=== PATIENT | female | born 1985 | race Caucasian/White ===

== ENCOUNTER → 2016-12-03 | Outpatient (CLI) | payer OTHER ==
--- NOTE | 2016-12-03 12:34 | CT ---
EXAMINATION TYPE: CT lumbar spine wo con DATE OF EXAM: 12/03/2016 12:14 PM COMPARISON: NONE HISTORY: Lt lower back pain, nerve pain when laying down since surgery 09/14/16 CT DLP: 392.2 mGycm Automated exposure control for dose reduction was used. FINDINGS: There is a disc spacer and pedicle screws present at L5-S1. Disc spacer and pedicle screws at L4-L5 a re also present. No spinal canal stenosis present. Spondylolisthesis of L5 is likely present. The rig ht pedicle screw at L4 mid transverses the medial aspect of the spinal canal Unenhanced CT of the lumbar spine was performed. Bone and soft tissue window settings are submitted as well as coronal and sagittal reconstructions. L1-L2: Normal disc space height. No disc herniation protrusion or central stenosis. No facet joint arthropathy. No evidence for foraminal encroachment. L2-L3: Normal disc space height. No disc herniation protrusion or central stenosis. No facet joint arthropathy. No evidence for foraminal encroachment. L3-L4: Normal disc space height. Stable disc bulging with no central stenosis. No facet joint arthro susana. No evidence for foraminal encroachment. L4-L5: Postsurgical change with metallic artifact obscures the spinal canal.. L5-S1: Postsurgical change with metallic artifact obscures the spinal canal.. IMPRESSION: 1. Postsurgical changes L4-S1. The left L4 pedicular screw again appears to impinge upon the spinal canal. 2. Stable disc bulging L3-L4. 3. Limited assessment of L4-S1 due to artifact from the metallic hardware. #4 punctate left renal andrew culi with no evidence of obstruction.
== END | disposition home or self-care (01) ==
LOC: RADCTMAIN 11:57
PROVIDERS: ATTEND Neurological Surgery
DX: M51.26 Other intervertebral disc displacement, lumbar region (principal); Z98.1 Arthrodesis status
CPT/HCPCS: 72131

== ENCOUNTER → 2017-01-27 | Outpatient (CLI) | payer OTHER ==
--- NOTE | 2017-01-27 16:00 | XR ---
EXAMINATION TYPE: XR lumbar spine 2 or 3V DATE OF EXAM: 01/27/2017 3:50 PM COMPARISON: 10/05/2016 HISTORY: Lumbosacral spondylolisthesis low back pain TECHNIQUE: 3 view lumbar spine FINDINGS: Postsurgical changes are present with pedicle screws and fixation rods L4-S1. Disc spacer p resent L4-5 L5-S1. Vertebral body alignment appears normal. Remaining disc heights are preserved. Mil d scoliosis is present. IMPRESSION: 1. Postsurgical changes. No acute osseous abnormality is evident. 2. Examination appears stable
== END | disposition home or self-care (01) ==
LOC: RADXRMAIN 15:38
PROVIDERS: ATTEND Neurological Surgery
DX: M43.10 Spondylolisthesis, site unspecified (principal)
CPT/HCPCS: 72100

== ENCOUNTER → 2017-05-11 | Outpatient (CLI) | payer OTHER ==
--- NOTE | 2017-05-11 07:10 | XR ---
EXAMINATION TYPE: XR lumbar spine 2 or 3V DATE OF EXAM ORDERED: 05/11/2017 HISTORY: M43.10 lumbosacral spondylolisthesis. COMPARISON: Previous study dated 01/27/2017. FINDINGS: There has been an interpedicular fusion with spacer placement at L4, L5 and S1. Alignment remains normal. There has been no apparent interval change. IMPRESSION: STABLE POSTSURGICAL CHANGE.
== END | disposition home or self-care (01) ==
LOC: RADXRMAIN 06:49
PROVIDERS: ATTEND Neurological Surgery
DX: M43.16 Spondylolisthesis, lumbar region (principal); Z98.890 Other specified postprocedural states
CPT/HCPCS: 72100

== ENCOUNTER → 2017-05-17 | Outpatient (CLI) | payer SELFPAY ==
--- NOTE | 2017-05-17 13:04 | XR ---
EXAMINATION TYPE: XR lumbar spine 2 or 3V DATE OF EXAM: 05/17/2017 CLINICAL HISTORY: M43.10 Spondylolisthesis, site unspecified TECHNIQUE: Three views of the lumbar spine are submitted. COMPARISON: 05/11/2017 FINDINGS: FINDINGS: There has been an interpedicular fusion with spacer placement at L4 , L5 and S1. Alignment remains stable. There is anterolisthesis of L5 on S1 of approximately 1.1 cm. IMPRESSION: Stable presurgical alignment and evaluation.
== END | disposition home or self-care (01) ==
LOC: RADXRMAIN 12:36
PROVIDERS: ATTEND Neurological Surgery
DX: M43.10 Spondylolisthesis, site unspecified (principal)

== ENCOUNTER → 2017-05-21 | Outpatient (CLI) | payer OTHER ==
--- NOTE | 2017-05-21 11:14 | CT ---
EXAMINATION TYPE: CT lumbar spine wo con DATE OF EXAM: 05/21/2017 COMPARISON: 12/03/2016 HISTORY: Lower back pain, pre hardware removal CT DLP: 327.9 mGycm CONTRAST: None TECHNIQUE: CT of the lumbar spine is performed on a spiral scan at 3 mm thick sections. Reconstructed images are performed in the coronal and sagittal planes. FINDINGS: T12-L1: No focal disc herniation or significant disc bulge is evident. No spinal canal stenosis or neural foraminal stenosis is present. L1-L2: No focal disc herniation or significant disc bulge is evident. No spinal canal stenosis or n eural foraminal stenosis is present L2-L3: No focal disc herniation or significant disc bulge is evident. No spinal canal stenosis or n eural foraminal stenosis is present. Some ligamentum flavum laxity may be present. L3-L4: Mild symmetrical disc bulge is present with anterior thecal sac flattening. No AP spinal canal stenosis or neural foraminal stenosis present. Mild ligamentum flavum laxity is present. L4-L5: Beam hardening artifact limits this examination. The left L4 pedicle screw is somewhat medial and superiorly displaced. Correlate with left L4 radicular symptoms. Disc spacers present L4-5. There is a grade 1 spondylolisthesis of L4 anterior and L5. L5-S1: There is a grade 1 spondylolisthesis of L5 anterior on S1. No AP spinal canal stenosis is pres ent. Neural foramen are patent. Vertebral alignment appears normal. Couple of punctate left renal stones remain present. Some sacroiliac joint degenerative changes present. IMPRESSION: 1. Mild disc bulge L3-4, stable from November 2016. 2. Stable appearance of the left L4 pedicle screw. 3. Grade 1 spondylolisthesis of L5 anteriorly on S1, stable.
== END | disposition home or self-care (01) ==
LOC: RADCTMAIN 07:16
PROVIDERS: ATTEND Neurological Surgery
DX: M43.17 Spondylolisthesis, lumbosacral region (principal); M51.26 Other intervertebral disc displacement, lumbar region
CPT/HCPCS: 72131

== ENCOUNTER → 2017-06-10 | Outpatient (CLI) | payer OTHER ==
[2017-06-10 13:00] LABS: Basophils % (A) 1 %; CH 28.9; CHCM 32.4; Eosinophils # (A) 0.1 k/uL (0-0.7); Eosinophils % (A) 1 %; HCT 33.8 % (34.0-46.0); HDW 2.02; HGB 11.1 gm/dL (11.4-16.0); Luc # (Auto) 0.14; Luc % (Auto) 2; Lymphocytes % (A) 29 %; MCH 29.5 pg (25.0-35.0); MCHC 32.8 g/dL (31.0-37.0); MCV 89.8 fL (80.0-100.0); Mean Platelet Volume 8.5; Monocytes # (A) 0.4 k/uL (0-1.0); Monocytes % (A) 5 %; Neutrophils # (A) 4.4 k/uL (1.3-7.7); Neutrophils % (A) 63 %; RBC 3.76 m/uL (3.80-5.40); RDW 12.2 % (11.5-15.5); WBC (Perox) 7.46
[2017-06-10 13:06] LABS: ALT 29 U/L (9-52); AST 17 U/L (14-36); Alkaline Phosphatase 66 U/L (38-126); Anion Gap 10 mmol/L; Blood Urea Nitrogen 16 mg/dL (7-17); Calcium 9.4 mg/dL (8.4-10.2); Carbon Dioxide 23 mmol/L (22-30); Chloride 106 mmol/L (98-107); Glucose 73 mg/dL (74-99); Non-African American GFR(MDRD) >60 (>60 ml/min/1.73 sqM); Potassium 4.5 mmol/L (3.5-5.1); Prothrombin Time 9.9 sec (9.0-12.0); Sodium 139 mmol/L (137-145); Total Bilirubin 0.4 mg/dL (0.2-1.3); Total Protein 6.7 g/dL (6.3-8.2)
[2017-06-10 13:18] LABS: Appearance,Urine Clear (Clear); Bilirubin,Urine Negative (Negative); Glucose,Urine (UA) Negative (Negative); Ketones,Urine Negative (Negative); Leukocyte Esterase,Urine Negative (Negative); Nitrite,Urine Negative (Negative); PH, Urine 6.5 (5.0-8.0); Protein,Urine Negative (Negative); Specific Gravity,Urine 1.002 (1.001-1.035); UA Billing (MACRO vs. MICRO) CHEM; Urobilinogen,Urine <2.0 mg/dL (<2.0)
== END | disposition home or self-care (01) ==
LOC: LABWHC1 12:09
PROVIDERS: ATTEND Neurological Surgery
DX: M46.1 Sacroiliitis, not elsewhere classified (principal); M51.36 Other intervertebral disc degeneration, lumbar region
CPT/HCPCS: 36415; 80053; 81003; 85025; 85610; 85730

== ENCOUNTER 2018-04-20 14:30 | Day surgery (SDC) | payer OTHER ==
[2018-04-20] MEDS ORDERED: LACTATED RINGERS 1,000 ML IV ONE (14:58)
[2018-04-20] MEDS ORDERED: ONDANSETRON 4 MG/2 ML VIAL IVP ONE (14:59)
[2018-04-20] MEDS ORDERED: DEXAMETHASONE SOD PHOSPHATE 10 MG/ML 1 ML VIAL IV ONE (15:00)
[2018-04-20] MEDS ORDERED: SCOPOLAMINE 1.5MG/72HR PATCH TRANSDERM ONE (15:00)
[2018-04-20] MEDS ORDERED: fentaNYL (PF) 50 MCG/ML 2 ML AMP ONE (16:33)
[2018-04-20] MEDS ORDERED: HYDROmorphone (PF) 1 MG/ML ONE (16:33)
[2018-04-20] MEDS ORDERED: LIDOCAINE 1% INJ 10MG/ML (20 ML MDV) ONE (16:33)
[2018-04-20] MEDS ORDERED: KETOROLAC 30 MG/ML 1 ML VIAL ONE (16:33)
[2018-04-20] MEDS ORDERED: PROPOFOL 10 MG/ML 20 ML VIAL IV ONE (16:33)
[2018-04-20] MEDS ORDERED: MIDAZOLAM 2 MG/2 ML VIAL ONE (16:33)
[2018-04-20] MEDS ORDERED: LIDOCAINE 1%-EPI 1:100,000 20 ML VIAL SQ ONE (16:47)
--- NOTE | 2018-04-20 17:07 | P.OP ---
Date of Procedure: 04/20/18 Preoperative Diagnosis: Missed Postoperative Diagnosis: Same Procedure(s) Performed: Suction dilation and curettage Anesthesia: MAC Surgeon: Agustina Weaver Estimated Blood Loss (ml): 50 Urine output (ml): 100 Pathology: other (Products of conception) Condition: stable Disposition: PACU Indications for Procedure: Missed at 11 weeks by LMP, 7 weeks by ultrasound. Vaginal bleeding. Operative Findings: 8-10 week size uterus, cervix dilated 1 cm, active vaginal bleeding Description of Procedure: After the patient and her were met in the preoperative holding area and all questions were answered, she was taken to the operating room where anesthetic was administered without incident. She was in positioned, prepped and draped in the dorsal lithotomy position. Bladder was drained for approximately 100 mL of clear urine. Exam under anesthetic was undertaken and the above findings were noted. Single-sided speculum was placed in the vagina and the cervix was grasped anteriorly with a single-tooth tenaculum. Paracervical block was placed with lidocaine plus epinephrine. The uterus was sounded to 10.5 cm. The cervix was sequentially dilated with Hegar dilators to allow for passage of the 10-[place] curved suction curette. This was introduced and a large amount of products of conception were removed. The sharp banjo curette was then introduced and the uterine cavity was sequentially curettaged with some additional tissue obtained. Final pass was undertaken with the suction curet with minimal tissue noted. The curet was then removed and the cervix was observed. There was a slow on use of bleeding that was observed. Speculum was removed and bimanual examination was performed. The uterus felt firm and approximately 6-8 weeks size. Speculum was reintroduced and the cervix was further observed. No active bleeding was noted. Therefore the procedure was terminated. Instruments were removed and the patient was awoken from anesthetic without incident. She was transported recovery area in stable condition. All counts reported to me as correct by the operating room staff.
[2018-04-20] MEDS ORDERED: METHYLERGONOVINE 0.2 MG/ML 1 ML AMP IM ONE (17:08)
[2018-04-20 17:12] VITALS: TEMP 98.3
[2018-04-20 17:18] VITALS: RESP 18
[2018-04-20 18:18] VITALS: BP 104/58; PULSE 72
== END 2018-04-20 18:47 | disposition home or self-care (01) ==
LOC: OR 14:30
PROVIDERS: ATTEND Obstetrics & Gynecology
DX: O02.1 Missed abortion (principal); Z98.1 Arthrodesis status; Z79.899 Other long term (current) drug therapy; Z88.0 Allergy status to penicillin; Z88.8 Allergy status to other drugs, medicaments and biological substances; Z91.048 Other nonmedicinal substance allergy status; Z88.2 Allergy status to sulfonamides
CPT/HCPCS: 88305; 59820; J2250; J1100; J2210; J2405; J2001; J3010; J1885; J1170; J2704

== ENCOUNTER → 2018-04-20 | Outpatient (CLI) | payer OTHER ==
--- NOTE | 2018-04-20 09:43 | US ---
EXAMINATION TYPE: Transabdominal DATE OF EXAM: 02/22/18 COMPARISON: NONE CLINICAL HISTORY: Bleeding O46.91. Heavy bleeding starting this morning EXAM PERFORMED: Transvaginal (TV) and Transabdominal (TA) EXAM MEASUREMENTS: GESTATIONAL AGE / DATING Physician Established: (11 weeks/0 days) EDC: 11/09/2018 Dates by LMP: (11 weeks/0 days) EDC: 11/09/2018 Dates by First Scan: No previous this is first scan Dates by Current Scan for: (7 weeks/1 days)- demise MATERNAL ANATOMY Uterus: 8.7 x 5.5 x 5.7 cm Right Ovary: 3.2 x 1.9 x 2.2 cm Left Ovary: 2.7 x 1.6 x 2.0 cm Post CDS / Adnexa: Small amount of free fluid visualized in the posterior cul de sac Presence of free fluid: Yes Presence of corpus luteal cyst: Yes, right ovary measuring 1.7 x 1.2 x 1.6 cm Presence of subchorionic bleed: No GESTATION / SURVEY CRL: 1.1 cm (7 weeks/1 days) IUP: Demise Date of LMP: Unsure Beta HcG (if available): Not available at this time demise. There is discrepancy between the dating by last menstrual period and crown-rump length dating. The gestational sac is in the lower uterine segment. No cardiac activity is evident within the pole. IMPRESSION: 1. Findings compatible with intrauterine demise.
[2018-04-20 09:53] LABS: HCT 36.3 % (34.0-46.0); HGB 11.8 gm/dL (11.4-16.0); MCH 29.4 pg (25.0-35.0); MCHC 32.6 g/dL (31.0-37.0); MCV 90.2 fL (80.0-100.0); Mean Platelet Volume 7.7; Platelet Count 270 k/uL (150-450); RBC 4.03 m/uL (3.80-5.40); RDW 12.6 % (11.5-15.5); WBC 8.4 k/uL (3.8-10.6)
== END | disposition home or self-care (01) ==
LOC: RADUSWWP 08:58
PROVIDERS: ATTEND Obstetrics & Gynecology
DX: O20.0 Threatened abortion (principal); Z3A.01 Less than 8 weeks gestation of pregnancy
CPT/HCPCS: 36415; 76801; 76817; 84702; 85027; 86850; 86900; 86901

== ENCOUNTER → 2018-05-20 | Outpatient (CLI) | payer OTHER | END | disposition home or self-care (01) | LOC: LABWHC1 14:59 | PROVIDERS: ATTEND Obstetrics & Gynecology | DX: O02.1 Missed abortion (principal) | CPT/HCPCS: 36415; 84702 ==

== ENCOUNTER → 2018-06-03 | Outpatient (CLI) | payer OTHER ==
--- NOTE | 2018-06-03 14:47 | XR ---
EXAMINATION TYPE: XR lumbar spine 2 or 3V , 3 VIEWS DATE OF EXAM ORDERED: 06/03/2018 HISTORY: Z98.1 HX Lumbar fusion. COMPARISON: Previous study dated 05/17/2017. FINDINGS: Limited hardware at L4, L5 and S1 has been removed. Spacing material persists. There is mild dextroscoliosis. There is a bilateral lysis at L5 and a grade 1 bordering on grade 2 sp ondylolisthesis of L5 on S1. Alignment is otherwise normal.. Vertebral body height is maintained. IMPRESSION: 1. POSTSURGICAL CHANGE. 2. BILATERAL LYSIS, L5 WITH A GRADE 1 BORDERING ON GRADE 2 SPONDYLOLISTHESIS OF L5 ON S1, UNCHANGED F ROM PREVIOUS.
== END | disposition home or self-care (01) ==
LOC: RADXRMAIN 14:00
PROVIDERS: ATTEND Neurological Surgery
DX: M43.26 Fusion of spine, lumbar region (principal); Z98.1 Arthrodesis status; M43.16 Spondylolisthesis, lumbar region
CPT/HCPCS: 72100

== ENCOUNTER → 2018-12-23 | Outpatient (CLI) | payer OTHER ==
--- NOTE | 2018-12-23 12:49 | XR ---
EXAMINATION TYPE: XR chest 2V DATE OF EXAM: 12/23/2018 COMPARISON: NONE HISTORY: Cough and congestion for one week. TECHNIQUE: Frontal and lateral views of the chest are obtained. FINDINGS: There is suspicious right upper lobe opacity seen better on frontal view. Left lung is cl ear. No pleural effusion or pneumothorax is evident bilaterally. The cardiac silhouette size is withi n normal limits. The osseous structures are intact. IMPRESSION: Suspect acute right upper lobe infiltrate.
== END ==
LOC: RADXRMAIN 12:07
PROVIDERS: ATTEND Family Medicine
DX: R05 Cough (principal)
CPT/HCPCS: 71046

== ENCOUNTER 2019-10-27 15:17 | Inpatient (IN) | payer OTHER ==
[2019-10-30] MEDS ORDERED: ROPIVACAINE 5MG/ML 20ML VIAL ONE (02:31)
[2019-10-30] MEDS ORDERED: fentaNYL (PF) 50 MCG/ML 5 ML AMP ONE (02:31)
[2019-10-30] MEDS ORDERED: SODIUM CHLORIDE 0.9% 100 ML BAG ONE (02:31)
[2019-10-30] MEDS ORDERED: DINOPROSTONE 10 MG INSERT.ER VAGINAL ONE (14:06)
[2019-10-30] MEDS ORDERED: LACTATED RINGERS 1,000 ML IV SCH (14:15)
--- NOTE | 2019-10-30 16:03 | P.HPOB ---
History of Present Illness H&P Date: 10/30/19 Chief Complaint: Postdates This is a 34-year-old 2 para 0010 woman with an estimated due date of 10/27/2019 based on LMP consistent with first trimester ultrasound. She is admitted at 40-3/7 weeks gestation for cervical ripening. During routine testing for postdates states she underwent an amniotic fluid index. She had less than 2 cm of identifiable amniotic fluid therefore the was recommended for induction. Her has been otherwise uncomplicated. She does have a history is fundal lithiasis with effusion of bowel for through S1 and has had intermittent back and pelvic pain during the . According to her orthopedic surgeon there is no contraindication to labor and vaginal delivery. Laboratory data: Blood type O+, antibody screen negative, rubella non-immune, VDRL nonreactive, hepatitis B surface antigen negative, HIV negative, gonorrhea and clinic cultures negative, glucose tolerance testing within normal limits, group B strep negative. Obstetric history: 2018 missed AB with suction D&C at 7 weeks. Review of Systems Constitutional: Reports fatigue, Denies chills, Denies fever Cardiovascular: Denies chest pain, Denies shortness of breath Respiratory: Denies cough Gastrointestinal: Denies abdominal pain, Denies nausea, Denies vomiting Genitourinary: Denies abnormal vaginal bleeding Musculoskeletal: Reports low back pain Integumentary: Denies rash Neurological: Denies headaches Past Medical History Past Medical History: No Reported History Additional Past Medical History / Comment(s): Spondylolithiasis History of Any Multi-Drug Resistant Organisms: None Reported Additional Past Surgical History / Comment(s): HX JUN 2017 HARWARE REMOVED L5 TO S1,OCET 2016 L4-S1 FUSION Past Anesthesia/Blood Transfusion Reactions: Motion Sickness, Postoperative Nausea & Vomiting (PONV) Past Psychological History: No Psychological Hx Reported Smoking Status: Never smoker Past Drug Use History: None Reported Medications and Allergies Home Medications Medication Instructions Recorded Confirmed Type Pnv,Calcium 72/Iron/Folic Acid 1 tab PO DAILY 04/20/18 04/20/18 History [ Plus Tablet] Sertraline [Zoloft] 1 tab PO DAILY 04/20/18 04/20/18 History Allergies Allergy/AdvReac Type Severity Reaction Status Date / Time prochlorperazine Allergy Severe Swelling Verified 04/20/18 14:41 [From Compazine] oseltamivir [From Tamiflu] Allergy Nausea & Verified 04/20/18 14:47 Vomiting Penicillins Allergy Rash/Hives Verified 04/20/18 14:45 adhesive tape AdvReac Rash/Hives Verified 04/20/18 14:41 Sulfa (Sulfonamide AdvReac Unknown Verified 04/20/18 14:47 Antibiotics) Exam Per office examination: This is a pleasant, visibly gravid female in no obvious distress. HEENT exam is unremarkable. Her breathing is unlabored and her heart is a regular rate and rhythm. The abdomen is gravid with a fundal height consistent with 40 week gestation. Estimated weight approximately 7-1/2-8 pounds. She has no right upper quadrant pain or uterine tenderness. On pelvic examination the cervix is 1-1/2 cm dilated, 50% effaced and the vertex is in the -3 station. She has trace lower extremity edema. HERB is 2.2 cm. By bedside ultrasound and infant is in the vertex presentation. Assessment and Plan (1) Advanced maternal age (AMA) in Status: Acute Code(s): EUX9085 - SNOMED Code(s): 426049600 (2) Oligohydramnios Narrative/Plan: HERB of approximately 2 cm postdates. Delivery is indicated. Cervical exam is unfavorable therefore she will be admitted for Cervidil placement followed by Pitocin induction of labor per protocol. This is assuming she has a reassuring NST upon admission. Risks benefits and alternatives to plans have been reviewed with the patient and her in the office setting and the consent to the treatment plan. Status: Acute Code(s): O41.00X0 - OLIGOHYDRAMNIOS, UNSP TRIMESTER, NOT APPLICABLE OR UNSP SNOMED Code(s): 58876158 (3) Post-dates Status: Acute Code(s): O48.0 - POST-TERM SNOMED Code(s): 00998265 (4) Spondylolisthesis Narrative/Plan: No contraindication to labor and vaginal delivery according to patient's orthopedic surgeon. She does have fusion of L4 through S1. Status: Acute Code(s): M43.10 - SPONDYLOLISTHESIS, SITE UNSPECIFIED SNOMED Code(s): 899625079 (5) Rubella non-immune status, antepartum Status: Acute Code(s): O99.89 - OTH DISEASES AND CONDITIONS COMPL PREG/CHLDBRTH; Z28.3 - UNDERIMMUNIZATION STATUS SNOMED Code(s): 844268904 Plan: 34-year-old 2 para 0010 woman admitted at 40-3/7 weeks gestation with postdates oligohydramnios and unfavorable cervix. Indication for delivery is oligohydramnios. She will receive Cervidil cervical ripening followed by Pitocin induction of labor as outlined above.
[2019-10-30 17:51] LABS: Basophils % (A) 0 %; Eosinophils # (A) 0.1 k/uL (0-0.7); Eosinophils % (A) 1 %; HCT 32.8 % (34.0-46.0); HGB 10.9 gm/dL (11.4-16.0); Lymphocytes % (A) 19 %; MCH 28.3 pg (25.0-35.0); MCHC 33.3 g/dL (31.0-37.0); MCV 85.1 fL (80.0-100.0); Monocytes # (A) 0.4 k/uL (0-1.0); Monocytes % (A) 4 %; Neutrophils # (A) 7.9 k/uL (1.3-7.7); Neutrophils % (A) 75 %; Platelet Count 259 k/uL (150-450); RBC 3.86 m/uL (3.80-5.40); RDW 13.5 % (11.5-15.5); WBC 10.5 k/uL (3.8-10.6)
[2019-10-30] MEDS: BUTORPHANOL 1 MG/ML 1 ML VIAL IV PRN (22:45)
[2019-10-31] MEDS ORDERED: TERBUTALINE 1 MG/ML VIAL SQ PRN (00:21)
[2019-10-31] MEDS ORDERED: METHYLERGONOVINE 0.2 MG/ML 1 ML AMP IM PRN (00:21)
[2019-10-31] MEDS ORDERED: OXYTOCIN 10 UNIT/ML 1 ML VIAL IM PRN (00:21)
[2019-10-31] MEDS ORDERED: LIDOCAINE 0.5% (PF) 5 MG/ML (50 ML SDV) SQ PRN (00:21)
[2019-10-31] MEDS ORDERED: CARBOPROST TROMETHAMINE 250 MCG/ML 1 ML AMP IM PRN (00:21)
[2019-10-31] MEDS ORDERED: OXYTOCIN 30 UNITS/500 ML NS 30 UNIT in SALINE 1 500ML.BAG IV SCH (00:30)
[2019-10-31] MEDS: BUTORPHANOL 1 MG/ML 1 ML VIAL IV PRN (00:47)
[2019-10-31] MEDS: LACTATED RINGERS 1,000 ML IV SCH ×2 (00:54→02:56)
[2019-10-31] MEDS ORDERED: BENZOCAINE/MENTHOL SPRAY 1 GM/SPRAY AEROSOL TOPICAL PRN (09:38)
[2019-10-31] MEDS ORDERED: LANOLIN CREAM 5 GM TUBE TOPICAL PRN (09:38)
[2019-10-31] MEDS ORDERED: HYDROCORTISONE 2.5% RECTAL CREAM 30 GM TUBE RECTAL PRN (09:38)
[2019-10-31] MEDS ORDERED: diphenhydrAMINE 25 MG CAP PO PRN (09:38)
[2019-10-31] MEDS ORDERED: SIMETHICONE 80 MG CHEWABLE PO PRN (09:38)
[2019-10-31] MEDS ORDERED: diphenhydrAMINE 50 MG/ML 1 ML VIAL IVP PRN ×2 (09:38)
[2019-10-31] MEDS ORDERED: MEASLES-MUMPS-RUBELLA VACC/PF 12,500 UNIT/0.5 ML VIAL SQ ONE (09:38)
[2019-10-31] MEDS ORDERED: diphenhydrAMINE 50 MG CAP PO PRN (09:38)
[2019-10-31] MEDS ORDERED: ZOLPIDEM 5 MG TAB PO PRN (09:38)
[2019-10-31] MEDS ORDERED: WITCH HAZEL 1 EACH MED..PAD TOPICAL PRN (09:38)
--- NOTE | 2019-10-31 09:38 | P.PROBDLV ---
Vaginal Delivery Note - . Vaginal Delivery Note: Findings: Male infant in the vertex left occiput anterior position with Apgars of 8 at 1 minute and 9 at 5 minutes, weight pending at the time of dictation. Second-degree perineal laceration. Intact, three-vessel cord placenta. EBL 150 mL's. Delivery summary: This is a 34 year old 2 para 0010 woman here was admitted at 40-3/7 weeks gestation for postdates induction of labor secondary to oligohydramnios. Please see the admission history and physical for details. She had an unfavorable cervix and on admission had a reactive NST. She then had a Cervidil placed posterior to the cervix at the approximately 5:30 PM. She began night began estrella rather regularly and dilated to 3 cm dilated later in the evening. The Cervidil was removed and she continued to spontaneously labor. She received an epidural anesthetic. heart tones were reassuring throughout the first stage. By approximately 05 40 5 AM she was 8 cm dilated and underwent artificial rupture of membranes. Scant clear fluid was noted. She reached complete cervical dilation by 07 15 noted did not immediately feel the urge to push. She labored down for almost one hour. Eventually she felt more pressure and commenced pushing with good maternal effort. With the patient was repositioned, prepped and draped in the modified Gianni position. With additional maternal effort the head delivered from the left occiput anterior position and the nose and mouth were bulb suctioned. The anterior followed by the posterior shoulders were then delivered and the rest the infant was delivered onto the field. The was placed on the maternal abdomen where the nose and mouth were further bulb suctioned. The umbilical cord was clamped after approximately 2 minutes. Per the parents request the umbilical cord blood was collected for cord blood banking per protocol of the Provided. The perineum was also inspected and a second-degree laceration was noted. This was infused with lidocaine. And repaired with 3-0 Vicryl suture in the usual fashion. An intact, three-vessel cord placenta was then expressed after an approximately 8 minute third stage of labor. The rest of the vagina was inspected and no further lacerations were noted. The uterus was massaged and was noted to be firm at the level of the umbilicus. The patient received Pitocin following the third stage of labor. Sample of the umbilical cord was also collected per protocol and submitted with the cord blood banking. All counts were correct and both mother and were doing well post delivery in the room.
[2019-10-31] MEDS ORDERED: OXYTOCIN 20 UNITS/1000 ML NS 1,000 ML IV SCH (09:45)
[2019-10-31] MEDS: IBUPROFEN 600 MG TAB PO PRN ×2 (10:00→17:01)
[2019-10-31] MEDS: ACETAMINOPHEN TAB 325 MG TAB PO PRN (19:40)
[2019-10-31] MEDS: SENNOSIDES-DOCUSATE SODIUM 1 EACH TAB PO SCH (19:41)
[2019-11-01] MEDS: SENNOSIDES-DOCUSATE SODIUM 1 EACH TAB PO SCH (07:26)
[2019-11-01] MEDS: IBUPROFEN 600 MG TAB PO PRN ×2 (07:26→18:08)
[2019-11-01 07:54] LABS: Basophils % (A) 0 %; Eosinophils # (A) 0.1 k/uL (0-0.7); Eosinophils % (A) 1 %; HCT 26.6 % (34.0-46.0); Lymphocytes # (A) 2.1 k/uL (1.0-4.8); Lymphocytes % (A) 18 %; MCH 28.9 pg (25.0-35.0); MCHC 33.3 g/dL (31.0-37.0); MCV 86.8 fL (80.0-100.0); Mean Platelet Volume 10.8; Monocytes # (A) 0.5 k/uL (0-1.0); Monocytes % (A) 4 %; Neutrophils # (A) 8.6 k/uL (1.3-7.7); Neutrophils % (A) 75 %; Platelet Count 198 k/uL (150-450); RBC 3.06 m/uL (3.80-5.40); RDW 13.5 % (11.5-15.5); WBC 11.5 k/uL (3.8-10.6)
[2019-11-01 08:03] LABS: HGB 8.8 gm/dL (11.4-16.0)
--- NOTE | 2019-11-01 08:15 | P.PNOBGVD ---
Subjective - Subjective Principal diagnosis: day 1 Interval history: Complaining of uncomfortable hemorrhoids this morning. She is also having hip and low back pain. Patient reports: Reports appetite normal, Reports voiding normally, Reports pain well controlled, Reports ambulating normally [place]: doing well Objective - Latest Vital Signs Latest vital signs: Vital Signs Temp Pulse Resp BP 11/01/19 00:00 98.0 F 70 16 120/68 10/31/19 20:00 98.2 F 84 16 118/67 10/31/19 16:00 99.2 F 76 16 126/54 10/31/19 11:30 73 16 111/65 10/31/19 11:00 83 18 112/53 10/31/19 10:30 83 16 112/63 10/31/19 10:15 75 16 111/58 10/31/19 10:00 85 16 119/68 10/31/19 09:45 78 16 120/62 10/31/19 09:30 98.3 F 78 16 120/62 - Exam Extremities: Present: normal, edema. Absent: tenderness Abdomen: Present: normal appearance, soft Uterus: Present: normal, firm Comments: Examination the perineum reveals intact laceration repair. Multiple moderately sized hemorrhoids noted consistent with post vaginal delivery status. No obvious large thrombosis noted. - Labs Labs: Abnormal Lab Results - Last 24 Hours (Table) 11/01/19 Range/Units 07:13 WBC 11.5 H (3.8-10.6) k/uL RBC 3.06 L (3.80-5.40) m/uL Hgb 8.8 L D (11.4-16.0) gm/dL Hct 26.6 L (34.0-46.0) % Neutrophils # 8.6 H (1.3-7.7) k/uL Assessment and Plan (1) Advanced maternal age (AMA) in Current Visit: No Status: Acute Code(s): BQI2918 - SNOMED Code(s): 297791050 (2) Oligohydramnios Current Visit: No Status: Acute Code(s): O41.00X0 - OLIGOHYDRAMNIOS, UNSP TRIMESTER, NOT APPLICABLE OR UNSP SNOMED Code(s): 19637053 (3) Post-dates Current Visit: No Status: Acute Code(s): O48.0 - POST-TERM SNOMED Code(s): 93728433 (4) Spondylolisthesis Current Visit: No Status: Acute Code(s): M43.10 - SPONDYLOLISTHESIS, SITE UNSPECIFIED SNOMED Code(s): 085652742 (5) Rubella non-immune status, antepartum Current Visit: No Status: Acute Code(s): O99.89 - OTH DISEASES AND CONDITIONS COMPL PREG/CHLDBRTH; Z28.3 - UNDERIMMUNIZATION STATUS SNOMED Code(s): 770868138 (6) Normal spontaneous vaginal delivery Current Visit: Yes Status: Acute Code(s): O80 - ENCOUNTER FOR FULL-TERM UNCOMPLICATED DELIVERY SNOMED Code(s): 84241668 (7) Perineal laceration with delivery, second degree Current Visit: Yes Status: Acute Code(s): O70.1 - SECOND DEGREE PERINEAL LACERATION DURING DELIVERY SNOMED Code(s): 9509110 (8) Hemorrhoids Current Visit: Yes Status: Acute Code(s): K64.9 - UNSPECIFIED HEMORRHOIDS SNOMED Code(s): 77827019 Plan: day #1 status post normal spontaneous vaginal delivery. She is recovering well. She does have some hemorrhoids that appear consistent with post vaginal delivery status in my opinion. We will monitor she has had a history of large thrombosed hemorrhoids in the past that required intervention. Continue supportive care at this time with ice and Tucks pads.
[2019-11-01] MEDS: ACETAMINOPHEN TAB 325 MG TAB PO PRN (13:17)
[2019-11-02] MEDS: SENNOSIDES-DOCUSATE SODIUM 1 EACH TAB PO SCH (03:51)
[2019-11-02] MEDS: IBUPROFEN 600 MG TAB PO PRN (04:05)
--- NOTE | 2019-11-02 07:22 | P.DS ---
Providers Date of admission: 10/30/19 16:42 Expected date of discharge: 11/02/19 Attending physician: Agustina Weaver Primary care physician: Ping Vicente - Discharge Diagnosis(es) (1) Advanced maternal age (AMA) in Current Visit: No Status: Acute (2) Oligohydramnios Current Visit: No Status: Acute (3) Post-dates Current Visit: No Status: Acute (4) Spondylolisthesis Current Visit: No Status: Acute (5) Rubella non-immune status, antepartum Current Visit: No Status: Acute (6) Normal spontaneous vaginal delivery Current Visit: Yes Status: Acute (7) Perineal laceration with delivery, second degree Current Visit: Yes Status: Acute (8) Hemorrhoids Current Visit: Yes Status: Acute Hospital Course: This is a 34-year-old 2 para 1 woman who is admitted at 40-3/7 weeks gestation for induction of labor secondary to postdates oligohydramnios. She had an unfavorable cervix and was admitted for Cervidil placement. The Cervidil did initiate active labor several hours after placement. This was removed and she had spontaneous labor without need for Pitocin. She did undergo artificial rupture of membranes and received an epidural anesthetic during the first stage of labor. She did reach complete cervical dilation and one on to deliver a liveborn male infant over second-degree perineal laceration. Apgars were 8 at 1 minute and 9 at 5 minutes. Please see the delivery summary for details. The patient's course was remarkable for symptomatic hemorrhoids following delivery. On the morning of day #1 she had moderately sized hemorrhoids with one area possibly thrombosed. This was managed with ice and supportive care and examination on day #2 reveals decrease in size and no evidence of thrombosis. She was able to have bowel movements without difficulty or rectal bleeding. Her pain and uncomfortable ambulation seem consistent with normal recovery from second-degree perineal laceration and hemorrhoids. Her lochia was minimal. The was admitted to the nursery for elevated bilirubin levels. A small VSD is also suspected for which arrangement in 2 months is recommended at [facility] in the [place]. She was discharged home on day #2 with the routine instructions for care and follow-up. She is planning to follow-up with her primary care provider regarding her hemorrhoids if they continue to be a problem. Procedures: Normal spontaneous vaginal delivery Patient Condition at Discharge: Good Plan - Discharge Summary New Discharge Prescriptions: No Action Sertraline [Zoloft] 1 tab PO DAILY Sennosides-Docusate Sodium [Senokot-S] 1 tab PO DAILY Discharge Medication List Sertraline [Zoloft] 1 tab PO DAILY 04/20/18 [History] Sennosides-Docusate Sodium [Senokot-S] 1 tab PO DAILY 10/30/19 [History] Follow up Appointment(s)/Referral(s): Agustina Weaver MD [STAFF PHYSICIAN] - 6 Weeks Activity/Diet/Wound Care/Special Instructions: Follow-up in the office in 6 weeks . Call with any concerning signs or symptoms including heavy vaginal bleeding, severe abdominal pain, fever greater than 101, swelling or redness of the lower extremities, foul vaginal discharge, or signs of depression. Nothing in the vagina for 6 weeks after delivery, specifically no intercourse. Notify the office with any rectal bleeding or significant increase in size or discomfort of hemorrhoids. Discharge Disposition: HOME SELF-CARE
[2019-11-02 08:03] VITALS: BP 110/72; PULSE 71; RESP 18; TEMP 98.2
--- NOTE | 2019-11-02 14:48 | P.GSCN ---
History of Present Illness Consult date: 11/02/19 Reason for Consult: Hemorrhoids Requesting physician: Agustina Weaver History of present illness: CHIEF COMPLAINT: Hemorrhoids HISTORY OF PRESENT ILLNESS: 34-year-old female who is . Patient had a vaginal delivery on 10/31/2019. General surgery was consulted to evaluate hemorrhoids. Patient seen and examined at the bedside with Dr. Rios. Patient reports history of hemorrhoids in her life. She states her hemorrhoids are currently tender and painful. PAST MEDICAL HISTORY: See list. PAST SURGICAL HISTORY: See list. SOCIAL HISTORY: No illicit drug use. REVIEW OF SYSTEMS: CONSTITUTIONAL: Denies fever or chills. HEENT: Denies blurred vision, vision changes, or eye pain. Denies hemoptysis CARDIOVASCULAR: Denies chest pain or pressure. RESPIRATORY: No shortness of breath. GASTROINTESTINAL: Denies abdominal pain. Denies nausea or vomiting. Reports tender external hemorrhoids. HEMATOLOGIC: Denies bleeding disorders. GENITOURINARY: Denies any blood in urine. SKIN: Denies pruitis. Denies rash. PHYSICAL EXAM: VITAL SIGNS: Reviewed. GENERAL: Well-developed in no acute distress. HEENT: No sclera icterus. Extraocular movements grossly intact. Moist buccal mucosa. Head is atraumatic, normocephalic. ABDOMEN: Soft. Nondistended. Nontender. NEUROLOGIC: Alert and oriented. Cranial nerves II through XII grossly intact. RECTAL EXAM: Large external hemorrhoids noted. ASSESSMENT: 1. External hemorrhoids PLAN: No surgical intervention recommended at this time per Dr. Rios Recommend daily over the counter benefiber/metamucil Patient to follow up next week with Dr. Rios outpatient. She may be discharged home today from a general surgery standpoint. Nurse practitioner note has been reviewed by physician. Signing provider agrees with the documented findings, assessment, and plan of care. Past Medical History Past Medical History: No Reported History Additional Past Medical History / Comment(s): Spondylolithiasis History of Any Multi-Drug Resistant Organisms: None Reported Additional Past Surgical History / Comment(s): HX JUN 2017 HARWARE REMOVED L5 TO S1,OCET 2016 L4-S1 FUSION Past Anesthesia/Blood Transfusion Reactions: Motion Sickness, Postoperative Nausea & Vomiting (PONV) Past Psychological History: No Psychological Hx Reported Smoking Status: Never smoker Past Drug Use History: None Reported - Past Family History Father Family Medical History: Hypertension Medications and Allergies Home Medications Medication Instructions Recorded Confirmed Type Sertraline [Zoloft] 1 tab PO DAILY 04/20/18 10/30/19 History Sennosides-Docusate Sodium 1 tab PO DAILY 10/30/19 10/30/19 History [Senokot-S] Allergies Allergy/AdvReac Type Severity Reaction Status Date / Time prochlorperazine Allergy Severe Swelling Verified 10/30/19 16:59 [From Compazine] gluten Allergy Nausea & Verified 10/31/19 09:48 Vomiting oseltamivir [From Tamiflu] Allergy Nausea & Verified 10/30/19 16:59 Vomiting Penicillins Allergy Rash/Hives Verified 10/30/19 16:59 adhesive tape AdvReac Rash/Hives Verified 10/30/19 16:59 Sulfa (Sulfonamide AdvReac Unknown Verified 10/30/19 16:59 Antibiotics) Surgical - Exam Vital Signs Temp Pulse Resp BP 97.8 F 107 H 16 127/63 10/30/19 17:50 10/30/19 17:50 10/30/19 17:50 10/30/19 17:50 Results - Labs 11/01/19 07:13
== END 2019-11-02 15:10 | disposition home or self-care (01) | DRG 806 ==
LOC: 4FBP 10-30 16:42
PROVIDERS: ADMIT Obstetrics & Gynecology; ATTEND Obstetrics & Gynecology
PROC: 10907ZC Drainage of Amniotic Fluid, Therapeutic from Products of Conception, Via Natural or Artificial Opening (ICD-10-PCS; principal; 2019-10-30)
PROC: 0KQM0ZZ Repair Perineum Muscle, Open Approach (ICD-10-PCS; principal; 2019-10-30)
PROC: 3E0P7VZ Introduction of Hormone into Female Reproductive, Via Natural or Artificial Opening (ICD-10-PCS; principal; 2019-10-30)
PROC: 10E0XZZ Delivery of Products of Conception, External Approach (ICD-10-PCS; principal; 2019-10-30)
PROC: 3E0R3NZ Introduction of Analgesics, Hypnotics, Sedatives into Spinal Canal, Percutaneous Approach (ICD-10-PCS; principal; 2019-10-30)
PROC: 00HU33Z Insertion of Infusion Device into Spinal Canal, Percutaneous Approach (ICD-10-PCS; principal; 2019-10-30)
DX: O48.0 Post-term pregnancy (principal); O41.03X0 Oligohydramnios, third trimester, not applicable or unspecified; Z37.0 Single live birth; O22.43 Hemorrhoids in pregnancy, third trimester; Z88.0 Allergy status to penicillin; Z88.2 Allergy status to sulfonamides; Z88.8 Allergy status to other drugs, medicaments and biological substances; O70.1 Second degree perineal laceration during delivery; Z3A.40 40 weeks gestation of pregnancy; Z82.49 Family history of ischemic heart disease and other diseases of the circulatory system
CPT/HCPCS: 85025; 86850; 86900; 86901; 90707

== ENCOUNTER → 2021-08-01 | Outpatient (CLI) | payer OTHER | END | disposition home or self-care (01) | LOC: LABWHC1 09:19 | PROVIDERS: ATTEND Obstetrics & Gynecology | DX: O20.0 Threatened abortion (principal); Z3A.00 Weeks of gestation of pregnancy not specified | CPT/HCPCS: 36415; 84144; 84702 ==

== ENCOUNTER → 2021-08-04 | Outpatient (CLI) | payer OTHER | END | disposition home or self-care (01) | LOC: LABWHC1 08:17 | PROVIDERS: ATTEND Obstetrics & Gynecology | DX: O20.0 Threatened abortion (principal); Z3A.00 Weeks of gestation of pregnancy not specified | CPT/HCPCS: 36415; 86803 ==

== ENCOUNTER → 2021-08-06 | Outpatient (CLI) | payer OTHER | END | disposition home or self-care (01) | LOC: LABWHC1 12:53 | PROVIDERS: ATTEND Obstetrics & Gynecology | DX: O20.0 Threatened abortion (principal); Z3A.00 Weeks of gestation of pregnancy not specified | CPT/HCPCS: 36415; 84702 ==

== ENCOUNTER 2021-12-29 07:34 | Emergency (ER) | payer OTHER ==
[2021-12-29 07:40] VITALS: BP 110/74; PULSE 83; RESP 20; TEMP 98.4
--- NOTE | 2021-12-29 07:55 | ED ---
General Adult HPI - General Chief complaint: Extremity Injury, Lower Stated complaint: Fall, ankle injury Time Seen by Provider: 12/29/21 07:46 Source: patient, RN notes reviewed Mode of arrival: ambulatory Limitations: no limitations - History of Present Illness Initial comments: Patient is a pleasant 36-year-old female presenting to the emergency Department with left foot and ankle pain. Patient was walking down steps with her toddler. Patient inverted her left ankle and fell on her foot. Patient has discomfort in this area. Patient is able to cannulate with discomfort. Discomfort is diffuse to the foot and medial ankle. No history of chronic foot or ankle problems. No head injury or loss of consciousness. No neck or back pain. No other area of concern or discomfort - Related Data Home Medications Medication Instructions Recorded Confirmed Sertraline [Zoloft] 25 mg PO DAILY 04/20/18 12/29/21 Ibuprofen [Motrin Ib] 400 mg PO Q8H PRN 12/29/21 12/29/21 Previous Rx's Medication Instructions Recorded Ibuprofen [Motrin] 600 mg PO Q6HR PRN #20 tab 12/29/21 Allergies Allergy/AdvReac Type Severity Reaction Status Date / Time prochlorperazine Allergy Severe Swelling Verified 12/29/21 08:41 [From Compazine] gluten Allergy Nausea & Verified 12/29/21 08:41 Vomiting oseltamivir [From Tamiflu] Allergy Nausea & Verified 12/29/21 08:41 Vomiting Penicillins Allergy Rash/Hives Verified 12/29/21 08:41 adhesive tape AdvReac Rash/Hives Verified 12/29/21 08:41 Sulfa (Sulfonamide AdvReac Unknown Verified 12/29/21 08:41 Antibiotics) Review of Systems ROS Statement: Those systems with pertinent positive or pertinent negative responses have been documented in the HPI. ROS Other: All systems not noted in ROS Statement are negative. Constitutional: Denies: fever Eyes: Denies: eye pain ENT: Denies: ear pain Respiratory: Denies: cough Cardiovascular: Denies: chest pain Endocrine: Denies: fatigue Gastrointestinal: Denies: abdominal pain Genitourinary: Denies: dysuria Musculoskeletal: Reports: as per HPI. Denies: back pain Skin: Denies: rash Neurological: Denies: weakness Past Medical History Past Medical History: No Reported History Additional Past Medical History / Comment(s): Spondylolithiasis History of Any Multi-Drug Resistant Organisms: None Reported Additional Past Surgical History / Comment(s): HX JUN 2017 HARWARE REMOVED L5 TO S1,OCET 2016 L4-S1 FUSION Past Anesthesia/Blood Transfusion Reactions: Motion Sickness, Postoperative Nausea & Vomiting (PONV) Past Psychological History: No Psychological Hx Reported Smoking Status: Never smoker Past Alcohol Use History: None Reported Past Drug Use History: None Reported - Past Family History Father Family Medical History: Hypertension General Exam Limitations: no limitations General appearance: alert, in no apparent distress Head exam: Present: atraumatic, normocephalic Eye exam: Present: normal appearance Neck exam: Present: normal inspection. Absent: tenderness Respiratory exam: Present: normal lung sounds bilaterally Cardiovascular Exam: Present: regular rate, normal rhythm GI/Abdominal exam: Present: soft. Absent: tenderness Extremities exam: Present: tenderness (Mild tenderness diffusely to the foot and minimal tenderness medial malleolus) Back exam: Present: normal inspection. Absent: vertebral tenderness Neurological exam: Present: alert. Absent: motor sensory deficit Psychiatric exam: Present: normal affect, normal mood Skin exam: Present: normal color. Absent: rash, cyanosis Course Vital Signs 12/29/21 07:38 Temperature 98.4 F Pulse Rate 83 Respiratory 20 Rate Blood Pressure 110/74 O2 Sat by Pulse 99 Oximetry Medical Decision Making - Medical Decision Making Patient reevaluated and updated. Patient does not want supportive device or splint. - Radiology Data Radiology results: image reviewed (Foot And ankle x-ray shows no acute abnormality) Disposition Clinical Impression: Foot sprain Disposition: HOME SELF-CARE Condition: Stable Instructions (If sedation given, give patient instructions): Foot Sprain (ED) Additional Instructions: Please do follow-up with primary care physician in the next couple days for recheck. Ice to affected area. Prescription for Motrin 600 has been sent to pharmacy. Use your Dilshad wrap. Return for increased pain, swelling, worsening symptoms or other concerns. Prescriptions: Ibuprofen [Motrin] 600 mg PO Q6HR PRN #20 tab PRN Reason: Pain Is patient prescribed a controlled substance at d/c from ED?: No Referrals: Ping Vicente MD [Primary Care Provider] - 1-2 days Time of Disposition: 08:51
--- NOTE | 2021-12-29 08:27 | XR ---
EXAMINATION TYPE: XR ankle complete 3 views LT, XR foot complete 3 views LT DATE OF EXAM: 12/29/2021 Comparison: None Clinical History: 36-year-old female pain after fall Findings: Ankle: Ankle mortise is congruent with preservation of the distal tibiofibular overlap. Talar dome is intact . Mild anterior soft tissue swelling. Subtalar joint align. Smooth delineation to the Achilles tendon . No acute fracture, subluxation, or dislocation. Foot: Bipartite tibial sesamoid. Jones's toe. Tiny type I accessory navicular. No acute fracture, subluxat ion, dislocation seen. Impression (ankle and foot): No acute osseous abnormality seen.
== END 2021-12-29 09:05 | disposition home or self-care (01) ==
LOC: EC 07:34
DX: S93.602A Unspecified sprain of left foot, initial encounter (principal); Z79.899 Other long term (current) drug therapy; Z88.0 Allergy status to penicillin; Z88.2 Allergy status to sulfonamides; W10.9XXA Fall (on) (from) unspecified stairs and steps, initial encounter; X50.1XXA Overexertion from prolonged static or awkward postures, initial encounter
CPT/HCPCS: 99284